=== PATIENT | female | born 2000 | race Caucasian/White ===

== ENCOUNTER 2021-02-07 19:41 | Emergency (ER) | payer OTHER ==
[~2021-02-07] VITALS: Ht 172.7 cm; Wt 109.0 kg
[2021-02-07 20:01] VITALS: BP 126/70
--- NOTE | 2021-02-07 20:03 | PHYS DOC ---
General Adult EDM: Chief Complaint: LOWER EXT PAIN HPI: HPI: Patient is a 20-year-old female who presents to the ER for right hip pain. Patient reports that 2 weeks ago she was unloading a box off of a conveyor belt that weighed 200 to 300 pounds and it slid down her leg. She gets her pain 5 out of 10. No treatment prior to arrival. Pain is worse with movement and worse when she is at work she states it improves with rest. Patient is able to bear weight and ambulate with steady gait. Patient denies any decreased sensation or decreased range of motion in extremity. Review of Systems: Review of Systems: 14 body systems of the review of systems have been reviewed. See HPI for pertinent positive and negative responses, otherwise all other systems are negative, nonpertinent or noncontributory Physical Exam: PE: Constitutional: Well developed, well nourished, no acute distress, non-toxic appearance. [] HENT: Normocephalic, atraumatic Eyes: PERRL, conjunctiva normal, no discharge. [] Neck: Normal range of motion, no stridor Cardiovascular: Normal peripheral perfusion Lungs & Thorax: Normal work of breathing, no tachypnea Skin: Warm, dry, no erythema, no rash. [] Back: Normal range of motion Extremities: No tenderness, no cyanosis, no clubbing, ROM intact, no edema. Right lower extremity: No obvious deformity, no wounds, no ecchymosis, good range of motion, neuro intact, right hip/groin pain with movement of right hip[] Neurologic: Alert and oriented X 3, normal motor function, normal sensory function, no focal deficits noted. [] Psychologic: Affect normal, judgement normal, mood normal. [] EKG: EKG: [] Radiology/Procedures: Radiology/Procedures: PROCEDURE: HIP RIGHT 2 VIEW XR HIP_RT 2-3VIEWS History: Reason: r. hip injury / Spl. Instructions: / History: . Pain Technique: 2 views right hip Comparison: None. Findings: Normal alignment. No fracture. Impression: 1. No acute osseous abnormality. Electronically signed by: Kirit Mckeon DO (02/07/2021 8:27 PM) [facility] DICTATED AND SIGNED BY: KIRIT MCKEON DO DATE: 02/07/212024 CC: YADIRA KIRK APRN; NON,STAFF ~MTH0 0 [] Heart Score: C/O Chest Pain: No Risk Factors: Risk Factors: DM, Current or recent (<one month) smoker, HTN, HLP, family history of CAD, obesity. Risk Scores: Score 0 - 3: 2.5% MACE over next 6 weeks - Discharge Home Score 4 - 6: 20.3% MACE over next 6 weeks - Admit for Clinical Observation Score 7 - 10: 72.7% MACE over next 6 weeks - Early Invasive Strategies Course & Med Decision Making: Course & Med Decision Making Pertinent Labs and Imaging studies reviewed. (See chart for details) [] Patient is an 19-year-old female being seen for right hip pain. Patient is ambulatory with a steady gait. An x-ray was performed it was negative for any acute findings. It is likely that patient pulled a muscle. Patient advised to take Tylenol/ibuprofen for pain at home. I discussed with patient all findings and diagnostic testing as well as the need to follow-up with PCP for further evaluation and treatment or return to the ER if any new or worsening symptoms. Strict return precautions were also discussed at length. Patient voiced understanding and agreement with the plan. Patient is hemodynamically stable at the time of disposition. Dragon Disclaimer: [employer] Disclaimer: This electronic medical record was generated, in whole or in part, using a voice recognition dictation system. Departure Departure: Impression: Primary Impression: Hip pain Disposition: 01 HOME / SELF CARE / HOMELESS Condition: GOOD Referrals: NON,STAFF (PCP) Patient Instructions: Hip Pain Additional Instructions: You were seen in the ER for right hip pain. An x-ray was performed and as we discussed it was negative for any acute findings. Take Tylenol and ibuprofen at home for pain. You can use a heating pad for pain relief. Please follow-up with your primary care provider if you continue to have these symptoms. If you develop worsening of your pain, inability to bear weight or walk, decreased sensation to extremity please return to the ER immediately. EMERGENCY DEPARTMENT GENERAL DISCHARGE INSTRUCTIONS Thank you for coming to [facility] (ED) today and trusting us with you care. We trust that you had a positivie experience in our Emergency Department. If you wish to speak to the department management, you may call the director at [phone]. YOUR FOLLOW UP INSTRUCTIONS ARE FOLLOWS: 1. Do you have a private Doctor? If you do not have a private doctor, please ask for a resource list of physicians or clinics that may be able to assist you with follow up care. 2. The Emergency Physician has interpreted your x-rays. The X-Ray specialist will also review them. If there is a change in the findings, you will be notified in 48 hours when at all possible. 3. A lab test or culture has been done, your results will be reviewed and you will be notified if you need a change in treatment. ADDITIONAL INSTRUCTIONS AND INFORMATION: 1. Your care today has been supervised by a physician who is specially trained in emergency care. Many problems require more than one evaluation for a complete diagnosis and treatment. We recommend that you schedule your follow up appointment as recommended to ensure complete treatment of you illness or injury. If you are unable to obtain follow up care and continue to have a problem, or if your condition worsens, we recommend that you return to the ED. 2. We are not able to safely determine your condition over the phone nor are we able to give sound medical advice over the phone. For these safety reasons, if you call for medical advice we will ask you to come to the ED for further evaluation. 3. If you have any questions regarding these discharge instructions please call the ED at [phone]. SAFETY INFORMATION: In the interest of safety, wellness, and injury prevention; we encourage you to wear your sealbelt, if you smoke; quite smoking, and we encourage family to use a protective helmet for bicycling and other sporting events that present an increased risk for head injury. IF YOUR SYMPTOMS WORSEN OR NEW SYMPTOMS DEVELOP, OR YOU HAVE CONCERNS ABOUT YOUR CONDITION; OR IF YOUR CONDITION WORSENS WHILE YOU ARE WAITING FOR YOUR FOLLOW UP APPOINTMENT; EITHER CONTACT YOUR PRIMARY CARE DOCTOR, THE PHYSICIAN WHOSE NAME AND NUMBER YOU WERE GIVEN, OR RETURN TO THE ED IMMEDIATELY. YADIRA KIRK APRN Feb 07, 2021 20:03
--- NOTE | 2021-02-07 20:30 | RAD ---
XR HIP_RT 2-3VIEWS History: Reason: r. hip injury / Spl. Instructions: / History: . Pain Technique: 2 views right hip Comparison: None. Findings: Normal alignment. No fracture. Impression: 1. No acute osseous abnormality. Electronically signed by: Félix Werner DO (02/07/2021 8:27 PM) [facility]
== END 2021-02-07 20:39 | disposition home or self-care (01) ==
LOC: ER 19:41
DX: M25.551 Pain in right hip (principal)
CPT/HCPCS: 73502; 99283